=== PATIENT | female | born 1990 | race Caucasian/White ===

== ENCOUNTER 2020-05-28 21:49 | Emergency (ER) | payer OTHER ==
--- NOTE | 2020-05-28 21:58 | ED Physician Documentation ---
PD HPI HEADACHE - Stated complaint Stated Complaint: NAUSEA/HEADACHE - History obtained from History obtained from: Patient - History of Present Illness Timing - onset: How many days ago (3) Timing - duration: Days Timing - details: Waxing and waning Pain level now: 8 Worst headache ever?: No: Worst headache ever? Location: Global Quality: Throbbing, Aching Associated symptoms: Fever (Tmax 101.6) Similar symptoms before: Diagnosis (DU is similar to previous migraines) Recently seen: Not recently seen - Additional information Additional information: Patient complains of three days of migraine headache. She has had minimal improvement with her prescribed triptan. Over the past 1 to 2 days she developed tender lymphadenopathy on both sides of her neck, and a sore throat. She also has had a fever with a Tmax 101.6. She complains of nausea but no vomiting. She has generalized body aches and my allergies. she has had both doses of COVID vaccination Review of Systems Constitutional: reports: Fever, Myalgias, Fatigue Eyes: denies: Decreased vision, Photophobia Ears: reports: Ear pain Throat: reports: Sore throat Cardiac: reports: Reviewed and negative Respiratory: reports: Reviewed and negative GI: reports: Nausea. denies: Abdominal Pain, Vomiting : denies: Dysuria, Frequency, Now EGA Neurologic: reports: Headache. denies: Focal weakness, Numbness PD PAST MEDICAL HISTORY - Past Medical History Past Medical History: Yes Neuro: Migraines - Present Medications Home Medications: Ambulatory Orders Medication Instructions Recorded Confirmed Ibuprofen [Motrin] 400 mg PO ONCE 05/28/20 05/28/20 Montelukast [Singulair] 10 mg PO QPM 05/28/20 05/28/20 Rizatriptan Benzoate [[employer]] 10 mg PO DAILY 05/28/20 05/28/20 Spironolactone [Aldactone] 200 mg ORAL QPM 05/28/20 05/28/20 traZODone [Desyrel] 50 mg PO HS 05/28/20 05/28/20 Acetaminophen/Cod 300/30 [Tylenol 1 - 2 each PO Q6HR PRN #14 tablet 05/29/20 #3] Ondansetron Odt [Zofran] 4 mg TL Q6H PRN #10 tablet 05/29/20 - Allergies Allergies/Adverse Reactions: Allergies Allergy/AdvReac Type Severity Reaction Status Date / Time No Known Drug Allergies Allergy Verified 05/28/20 21:57 - Living Situation Living Arrangement: reports: At home PD ED PE NORMAL - Vitals Vital signs reviewed: Yes - General General: Alert and oriented X 3, No acute distress, Well developed/nourished - HEENT HEENT: PERRL, EOMI, Moist mucous membranes - Neck Neck: Supple, no meningeal sign - Cardiac Cardiac: RRR, No murmur - Respiratory Respiratory: No respiratory distress, Clear bilaterally - Abdomen Abdomen: Soft, Non tender - Neuro Neuro: Alert and oriented X 3, 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 parapertussis DNA (PCR) NOT DETECTED Nasal Coronavir 229E PCR NOT DETECTED Nasal Coronavir HKU1 PCR NOT DETECTED Nasal Coronavir NL63 PCR NOT DETECTED Nasal Coronavir OC43 PCR NOT DETECTED Nasal Enterovir/Rhinovir PCR NOT DETECTED Nasal Influenza B PCR NOT DETECTED Nasal Influenza A PCR NOT DETECTED Nasal Parainfluen 1 PCR NOT DETECTED Nasal Parainfluen 2 PCR NOT DETECTED Nasal Parainfluen 3 PCR NOT DETECTED Nasal Parainfluen 4 PCR NOT DETECTED Nasal RSV (PCR) NOT DETECTED Nasal B.pertussis DNA PCR NOT DETECTED Nasal C.pneumoniae (PCR) NOT DETECTED Nam Human Metapneumo PCR NOT DETECTED Nasal M.pneumoniae (PCR) NOT DETECTED Nasal SARS-CoV-2 (PCR) NOT DETECTED Group A Strep Rapid Negative PD MEDICAL DECISION MAKING - ED course Complexity details: reviewed results, re-evaluated patient, considered differential, d/w patient ED course: HPI s/o viral illness without red flags (such as meningismus, AMS, neurological c/o or findings beyond generalized DU, abdominal pain). respiratory panel and strep swab are negative. she is given 10mg decadron for anti-inflammatory effect, particularly for the pharyngitis. she has not been getting adequate relief of her headache nor generalized body myalgias with tryptan and ibuprofen. she is given take-home percocet and rx for tylenol #3 (she says this has helped in the past for her more severe headaches). during ED stay, she developed nausea and heartburn and thus given zofran, protonix, and maalox prior to d/c Departure - Departure Disposition: Home, Self Care Clinical Impression: Viral syndrome Condition: Good Instructions: ED Viral Syndrome Follow-Up: Dang Sage ARNP [Credentialed Staff Provider] - Prescriptions: Acetaminophen/Cod 300/30 [Tylenol #3] 1 - 2 each PO Q6HR PRN #14 tablet PRN Reason: Pain Ondansetron Odt [Zofran] 4 mg TL Q6H PRN #10 tablet PRN Reason: Nausea / Vomiting Forms: Activity restrictions Discharge Date/Time: 05/29/20 00:42
[2020-05-28 22:49] LABS: RAPID STREP SCREEN Negative (Negative)
[2020-05-28] MEDS ORDERED: DEXAMETHASONE 10 MG/ML VIAL PO STA (22:53)
[2020-05-28] MEDS ORDERED: CHERRY SYRUP 10 ML UDC PO ONE (22:53)
[2020-05-28 23:32] LABS: B. PARAPERTUSSIS- RESP PCR PAN NOT DETECTED; B. PERTUSSIS- RESP PCR PANEL NOT DETECTED; C. PNEUMONIAE- RESP PCR PANEL NOT DETECTED; CORONAVIRUS 229E-RESP PCR NOT DETECTED; CORONAVIRUS HKU1-RESP PCR NOT DETECTED; CORONAVIRUS NL63-RESP PCR NOT DETECTED; CORONAVIRUS OC43-RESP PCR NOT DETECTED; HUMAN METAPNEUMOVIRUS NOT DETECTED; INFLUENZA A- RESP PCR PANEL NOT DETECTED; INFLUENZA B - RESP PCR PANEL NOT DETECTED; M. PNEUMONIAE- RESP PCR PANEL NOT DETECTED; PARAINFLUENZA VIRUS 1 NOT DETECTED; PARAINFLUENZA VIRUS 2 NOT DETECTED; PARAINFLUENZA VIRUS 3 NOT DETECTED; PARAINFLUENZA VIRUS 4 NOT DETECTED; RHINOVIRUS/ENTEROVIRUS NOT DETECTED; RSV- RESP PCR PANEL NOT DETECTED; SARS-CoV-2 -RESP PCR PANEL NOT DETECTED
[2020-05-29] MEDS ORDERED: oxyCODONE/ACET 5/325 Prepack 4 PO STA (00:18)
[2020-05-29] MEDS ORDERED: PANTOPRAZOLE 40 MG TABLET PO STA (00:18)
[2020-05-29] MEDS ORDERED: ONDANSETRON ODT 4 MG TABLET TL STA (00:18)
[2020-05-29] MEDS ORDERED: MAG HYDROX/AL HYDROX/SIMETH 30 ML UDC PO STA (00:20)
[2020-05-29 00:32] VITALS: BP 129/78
== END 2020-05-29 00:42 | disposition home or self-care (01) ==
LOC: ED 21:49
DX: B34.9 Viral infection, unspecified (principal); Z20.822 Contact with and (suspected) exposure to COVID-19
CPT/HCPCS: 0202U; 87070; 87430; 99283; 99284; A9270; Q0162